=== PATIENT | female | born 1930 | race Caucasian/White ===

== ENCOUNTER 2019-03-29 17:23 | Inpatient (IN) ==
[2019-03-29 18:00] LABS: Basophils # 0.2 K/mm3 (0-0.2); Basophils % 1.4 % (0.1-2.0); Eosinophils # 0.1 K/mm3 (0.0-0.4); Eosinophils % 1.1 % (0.1-12.0); Hematocrit 50.9 % (37.0-47.0); Hemoglobin 14.7 g/dL (12.2-16.2); Lymphocytes # 3.1 K/mm3 (0.7-4.5); Lymphocytes % 27.4 % (10-50); Mean Corpuscular HGB Conc 28.9 g/dL (31.8-35.4); Mean Corpuscular Volume 93.9 fl (81-99); Mean Platelet Volume 8.8 fl (7.4-10.4); Monocytes # 0.7 K/mm3 (0.1-1.0); Monocytes % 6.5 % (1.7-9.3); Neutrophils # 7.1 K/mm3 (1.8-7.8); Neutrophils % 63.5 % (37.0-80.0); Platelet Count 417 K/mm3 (142-424); Red Blood Count 5.42 M/mm3 (4.20-5.40); Red Cell Distribution Width 14.8 % (11.5-17.5); White Blood Count 11.1 K/mm3 (4.8-10.8)
[2019-03-29 18:05] LABS: Appearance,Urine CLEAR (Clear); Blood, Urine 1+ (Negative); Color,Urine YELLOW (Yellow); Glucose,Urine (UA) Negative (Negative); Ketones,Urine Negative (Negative); Leukocyte Esterase,Urine 2+ (Negative); Microscopic, Urine URINE MICROSCOPIC (MICROSCOPIC); Protein,Urine Negative (Negative); Specific Gravity, Urine 1.025 (1.005-1.030); Urobilinogen,Urine 0.2 EU/dl (0.2)
[2019-03-29 18:18] LABS: Bilirubin,Urine Negative (Negative)
[2019-03-29 18:22] LABS: Anion Gap 17.9 mEq/L (5-15)
[2019-03-29 18:49] LABS: WBC,Urine TNTC #/hpf (0-3)
--- NOTE | 2019-03-29 20:03 | Emergency Department Note ---
ED Disposition Clinical Impression: UTI (urinary tract infection), Hypernatremia Disposition: Admitted as Observation Condition on Discharge: Fair Instructions: DI for Altered Mental Status Referrals: Provider,Referral, [Primary Care Provider] - Time of Disposition: 20:08 - Critical Care Critical Care Time: No Attestation: On 03/29/19, the high probability of a clinically significant, sudden or life threatening deterioration of the following system(s) required my full and direct attention, intervention and personal management. The time I documented below is in addition to time spent performing reported procedures but includes the following listed in this critical care notation. Medical Decision Making - Maximiliano Inquiry Pt receiving controlled substance: No Maximiliano was queried for this patient: No Vital Signs: 03/29/19 17:24 03/29/19 18:36 Temperature 99.9 F H Temperature Source Rectal Pulse Rate [Right Radial] 91 H 128 H Respiratory Rate 16 Blood Pressure [Right Radial Artery] 128/71 172/140 H Blood Pressure Mean [Right Radial Artery] 90 150 02 Sat by Pulse Oximetry 95 94 L - Lab Data Lab results reviewed: Yes: I reviewed the patient's lab results. Lab Results 03/29/19 17:15: WBC 11.1 H, RBC 5.42 H, Hgb 14.7, Hct 50.9 H, MCV 93.9, MCH 27.1, MCHC 28.9 L, RDW 14.8, Plt Count 417, MPV 8.8, Neut % (Auto) 63.5, Lymph % (Auto) 27.4, [place] % (Auto) 6.5, Eos % (Auto) 1.1, Baso % (Auto) 1.4, Neut # (Auto) 7.1, Lymph # (Auto) 3.1, [place] # (Auto) 0.7, Eos # (Auto) 0.1, Baso # (Auto) 0.2 03/29/19 17:15: Sodium 164 H*, Potassium 4.9, Chloride 126 H, Carbon Dioxide 25, Anion Gap 17.9 H, BUN 80 H, Creatinine 3.34 H, Estimated Creat Clear 12, Estimated GFR 13 L*, Est GFR ( Amer) 16 L*, Glucose 92, Calcium 10.0, Troponin I 0.07 H 03/29/19 17:15: Lactate 1.3 03/29/19 17:35: Urine Color Yellow, Urine Appearance Clear, Urine pH 6.0, Ur Specific [place] 1.025, Urine Protein Negative, Urine Glucose (UA) Negative, Urine Ketones Negative, Urine Blood 1+, Urine Nitrate Negative, Urine Bilirubin Negative, Urine Urobilinogen 0.2, Ur Leukocyte Esterase 2+ A, Urine WBC Tntc Result diagrams: 03/29/19 17:15 03/29/19 17:15 Orders (Tests/Meds): ED MEDICATIONS Generic Name Dose Route Start Last Admin Trade Name Freq PRN Reason Stop Dose Admin Sodium Chloride 500 mls @ 999 mls/hr 03/29/19 17:45 03/29/19 17:49 Sod Chlor 0.9% 1000ml Bag IV 03/29/19 18:15 Not Given .Q31M LUANNE Sodium Chloride 500 mls @ 999 mls/hr 03/29/19 18:00 03/29/19 17:51 Sod Chlor 0.9% 1000ml Bag IV 03/29/19 18:30 999 mls/hr .Q31M LUANNE Administration Sodium Chloride 1,000 mls @ 125 mls/hr 03/29/19 18:30 03/29/19 18:30 Sod Chlor 0.45% 1000ml Bag IV 04/28/19 18:29 125 mls/hr .Q8H LUANNE Administration Ceftriaxone Sodium 2 gm/ 100 mls @ 200 mls/hr 03/29/19 19:15 03/29/19 19:20 Sodium Chloride IV 04/12/19 19:14 200 mls/hr Q24H LUANNE Administration Protocol Sodium Chloride 10 ml 03/29/19 17:50 03/29/19 17:51 Saline Flush 10ml Syringe IV 04/28/19 17:49 10 ml QSHIFT PRN Administration Maintain IV Site ORDERS Category Date Time Status Chest XR -- portable [XR chest portable] Stat Exams 03/29/19 17:35 Taken Blood Culture Stat Micro 03/29/19 17:15 Received Urine Culture Stat Micro 03/29/19 17:35 Received General Adult HPI - General Chief complaint: Altered Mental Status Stated complaint: AMS Time Seen by Provider: 03/29/19 17:45 Mode of Arrival: EMS Limitations: No Limitations Description of Symptoms (Recalled from ER Triage Doc. by RN): PT TO ED PER EMS. REPORTS INCREASED LETHARY PER SNF STAFF. SNF STAFF REPORTS PT IS ALTERED FROM HER TYPICAL BASELINE. PT REFUSES ANY PAIN AT THIS TIME - History of Present Illness HPI narrative: decreased mental status, decreased po intake - Related Data Home Medications Medication Instructions Recorded Confirmed Acetaminophen [Tylenol 500mg 500 mg PO Q4HP PRN 03/29/19 03/29/19 tablet] Apixaban [Eliquis 5mg Tablet] 5 mg PO BID 03/29/19 03/29/19 Aspirin [Aspirin 81mg chewable 81 mg PO DAILY 03/29/19 03/29/19 tab] Carvedilol [Carvedilol 12.5mg Tab] 12.5 mg PO BID 03/29/19 03/29/19 Cholecalciferol (Vitamin D3) 1,000 unit PO DAILY 03/29/19 03/29/19 [Vitamin D3 1,000 Unit Cap] Donepezil HCl [Donepezil ODT 10mg] 10 mg PO DAILY 03/29/19 03/29/19 Donepezil HCl [Donepezil ODT 5mg] 5 mg PO DAILY 03/29/19 03/29/19 Fluticasone Propionate [Flonase 1 spr NS DAILY 03/29/19 03/29/19 50mcg nasal spray 16gm] Hydroxychloroquine Sulfate 200 mg PO DAILY 03/29/19 03/29/19 [Plaquenil] Lactulose [Lactulose 10gm/15ml 10 gm PO DAILY PRN 03/29/19 03/29/19 Oral Soln] Loratadine [Allergy Relief] 10 mg PO DAILY 03/29/19 03/29/19 Memantine HCl [Namenda Xr] 28 mg PO DAILY 03/29/19 03/29/19 Multivitamin with Minerals 1 each PO DAILY 03/29/19 03/29/19 [Multivitamins with Minerals] Omeprazole [Omeprazole 20mg 20 mg PO DAILY 03/29/19 03/29/19 Capsule] Potassium Chloride [Micro-K 10mEq 10 meq PO BID 03/29/19 03/29/19 cap] Triamterene/Hydrochlorothiazid 1 each PO DAILY 03/29/19 03/29/19 [Dyazide 37.5-25 Capsule] Allergies Allergy/AdvReac Type Severity Reaction Status Date / Time From LESCOL Allergy Unknown Uncoded 06/21/17 14:01 From LIPITOR Allergy Unknown Uncoded 06/21/17 14:01 From MICARDIS Allergy Unknown Uncoded 06/21/17 14:01 From NIASPAN Allergy Unknown Uncoded 06/21/17 14:01 From ZETIA Allergy Unknown Uncoded 06/21/17 14:01 LISINOPRIL Allergy Unknown Uncoded 06/21/17 14:01 SULFA (SULFONAMIDE) Allergy Unknown Uncoded 06/21/17 14:01 [facility] History - Hepatitis A Screen Drug use history?: No High risk sexual behaviors?: No History of sexually transmitted infection?: No Currently employed?: No Childcare worker?: No Do you have indoor plumbing?: Yes Do you have electricity?: Yes Attestation statement:: This patient has been screened for Hepatitis A risk factors. I have reviewed the patient's past medical history: Yes - Social History Smoking Status: Never smoker Alcohol Intake: never Occupational Status: retired ROS Obtained: Yes All systems reviewed & no additional complaints, Yes unobtainable due to mental condition - Constitutional Constitutional: Denies fever(s) - Neurologic Neurologic: Denies seizure-like activity, Denies syncope - Hematologic/Lymphatic Henatologic/Lymphatic: Denies easy bleeding, Denies easy bruising Physical Exam - General General appearance: lethargic - Eye Eye exam: Present: normal appearance, PERRL, EOMI - Respiratory Respiratory exam: Present: normal lung sounds bilaterally. Absent: respiratory distress - Cardiovascular Cardiovascular exam: Present: regular rate, normal rhythm. Absent: JVD - Abdominal Exam Abdominal exam: Present: soft - Extremities Exam Extremities exam: Present: normal inspection, normal capillary refill. Absent: full ROM, calf tenderness - Neurological Exam Neurological exam: Present: alert, oriented X3 - Psychiatric Psychiatric exam: Present: normal affect, normal mood - Skin Skin exam: Present: warm, dry, intact, normal color
--- NOTE | 2019-03-30 07:08 | Pharmacy Consult Notes ---
[facility] Pharmacy VTE Monitoring - Patient Demographics Admission date: 03/29/19 Report Date: 03/30/19 Time: 07:08 Allergies/Adverse Reactions: Patient Allergies From LESCOL Allergy (Unknown, Uncoded 06/21/17 14:01) From LIPITOR Allergy (Unknown, Uncoded 06/21/17 14:01) From MICARDIS Allergy (Unknown, Uncoded 06/21/17 14:01) From NIASPAN Allergy (Unknown, Uncoded 06/21/17 14:01) From ZETIA Allergy (Unknown, Uncoded 06/21/17 14:01) LISINOPRIL Allergy (Unknown, Uncoded 06/21/17 14:01) SULFA (SULFONAMIDE) Allergy (Unknown, Uncoded 06/21/17 14:01) Height: 1.55 m Weight: 58.995 kg Patient Problems: Current Active Problems UTI (urinary tract infection) (Acute) Hypernatremia (Acute) - VTE Risk Labs: VTE Related Lab Results Hgb 14.7 g/dL (12.2-16.2) 03/29/19 17:15 Hct 50.9 % (37.0-47.0) H 03/29/19 17:15 Plt Count 417 K/mm3 (142-424) 03/29/19 17:15 BUN 80 mg/dL (7-18) H 03/29/19 17:15 Creatinine 3.34 mg/dL (0.55-1.02) H 03/29/19 17:15 Estimated Creat Clear 12 mL/min (50-200) 03/29/19 17:15 Was VTE Risk Assessment Performed: Yes VTE Score: 4 VTE Risk Level: Low Risk - Prophylaxis VTE Prophylaxis Ordered?: Yes Types of VTE Prophylaxis: Pharmacological Pharmacologic Type: Other (ELIQUIS) - VTE Diagnosis Confirmed Treatment or plan recommended: Continue Current Treatment
[2019-03-30 07:35] LABS: Basophils # 0.1 K/mm3 (0-0.2); Eosinophils # 0.2 K/mm3 (0.0-0.4)
[2019-03-30 07:38] LABS: Anion Gap 15.9 mEq/L (5-15)
--- NOTE | 2019-03-30 07:55 | History & Physical Report ---
*Admission Date: 03/29/19 <03/30/19 07:56> *Chief complaint: UTI and Mental Status Change <03/30/19 08:38> *History of present illness: Ms. Giordano is an 88[facility] patient with history of Alzheimer's, HLP, frequent UTI's with associated renal insufficiency, and recent RLE DVT on Eliquis. She was sent to [facility] ED yesterday after staff noticed some increasing lethargy. She was found to have UTI as well as elevated WBC and decreased renal function. Her sodium and chloride levels were elevated and she had a mildly elevated troponin. CXR was negative for acute changes. She was admitted for IVF and antibiotics. This morning, patient's daughter is at the bedside and provides history as pt is alert but nonverbal. She has eaten a few bites of her breakfast and drank several glasses of fluids. Her daughter reports that although she has been restl ess throughout the night there are no indications that she is in pain and seems to be slightly more alert than yesterday. Urine cultures are pending. <03/30/19 08:38> [facility] History Medical History: Reports:: Deep Vein Thrombosis (Right leg DVT 45 days ago), Dementia, Gastroesophageal Reflux Disease(GERD), Hyperlipidemia, Renal Insufficiency, Urinary Tract Infection Denies:: Cancer, Diabetes Mellitus Type 1, Diabetes Mellitus Type 2, MRSA <03/30/19 07:56> *Have you ever received a pneumonia vaccine?: No <03/30/19 07:56> *Have you received a flu vaccine this season?: No <03/30/19 07:56> Other Medical History: Reports: Arthritis (RA), Cataracts (Bilateral repair) <03/30/19 07:56> Laterality Cases: Right: Total Hip Replacement <03/30/19 07:56> Other Surgeries: Yes: Cholecystectomy, , Hysterectomy-Total, Other (2 bladder tucks) <NigelJorge03/30/19 07:56> Amputation: No <03/30/19 07:56> Fractures: Yes (HIP) <Roxane Manning 03/30/19 07:56> - *Social History Educational Level: Completed GED/General Educational Development <Roxane Manning 03/30/19 07:56> Smoking Status: Never smoker <Roxane Manning 03/30/19 07:56> Alcohol Intake: never <Roxane Manning 03/30/19 07:56> Substance Use Type: denies use <Roxane Manning 03/30/19 08:38> *Occupational Status:: retired <Roxane Manning 03/30/19 07:56> *Travel in the last 8 weeks: None <Roxane Manning 03/30/19 07:56> Family Hx:: Cancer, Diabetes, Heart Attack <Roxane Manning 03/30/19 07:56> Review of Systems - Review of Systems Review of systems:: unable to obtain <Roxane Manning 03/30/19 08:38> - *Neurologic Denies seizure-like activity, Denies fainting <Roxane Manning 03/30/19 07:56> Meds Home Medications Medication Instructions Recorded Confirmed Type Acetaminophen [Tylenol 500mg 500 mg PO Q4HP PRN 03/29/19 03/29/19 History tablet] Apixaban [Eliquis 5mg Tablet] 5 mg PO BID 03/29/19 03/29/19 History Aspirin [Aspirin 81mg chewable 81 mg PO DAILY 03/29/19 03/29/19 History tab] Carvedilol [Carvedilol 12.5mg Tab] 12.5 mg PO BID 03/29/19 03/29/19 History Donepezil HCl [Donepezil ODT 10mg] 10 mg PO HS 03/29/19 03/30/19 History Donepezil HCl [Donepezil ODT 5mg] 5 mg PO HS 03/29/19 03/30/19 History Fluticasone Propionate [Flonase 1 spr NS HS 03/29/19 03/30/19 History 50mcg nasal spray 16gm] Hydroxychloroquine Sulfate 200 mg PO DAILY 03/29/19 03/29/19 History [Plaquenil] Lactulose [Lactulose 10gm/15ml 20 gm PO DAILYP PRN 03/29/19 03/30/19 History Oral Soln] Loratadine [Allergy Relief] 10 mg PO DAILY 03/29/19 03/29/19 History Memantine HCl [Namenda Xr] 28 mg PO DAILY 03/29/19 03/29/19 History Multivitamin with Minerals 1 each PO HS 03/29/19 03/30/19 History [Multivitamins with Minerals] Omeprazole [Omeprazole 20mg 20 mg PO DAILY 03/29/19 03/29/19 History Capsule] Potassium Chloride [Micro-K 10mEq 10 meq PO BID 03/29/19 03/29/19 History cap] Triamterene/Hydrochlorothiazid 1 each PO DAILY 03/29/19 03/29/19 History [Dyazide 37.5-25 Capsule] Calcium Carbonate 1,000 mg PO BID 03/30/19 03/30/19 History Cholecalciferol (Vitamin D3) 2,000 unit PO DAILY 03/30/19 03/30/19 History [Vitamin D3] Polyvinyl Alcohol/Povidone/Pf 1 drp OP BID 03/30/19 03/30/19 History [Refresh Classic Eye Drops] <Harrison,Mj - 03/30/19 08:58> Allergies Allergy/AdvReac Type Severity Reaction Status Date / Time atorvastatin [From Lipitor] Allergy Unknown Verified 03/30/19 07:54 allergy reaction ezetimibe [From Zetia] Allergy Unknown Verified 03/30/19 07:54 allergy reaction fluvastatin [From Lescol] Allergy Unknown Verified 03/30/19 07:54 allergy reaction lisinopril Allergy Unknown Verified 03/30/19 07:54 allergy reaction niacin Allergy Unknown Verified 03/30/19 07:54 [From Niaspan allergy Extended-Release] reaction Sulfa (Sulfonamide Allergy Unknown Verified 03/30/19 07:54 Antibiotics) allergy reaction telmisartan [From Micardis] Allergy Unknown Verified 03/30/19 07:54 allergy reaction <Harrison,Mj - 03/30/19 08:58> Exam Vital signs and Labs for Last 24 Hours: Temp Pulse Resp BP Pulse Ox 97.3 F L 69 18 119/47 L 98 03/30/19 08:00 03/30/19 08:00 03/30/19 08:00 03/30/19 08:00 03/30/19 08:00 Laboratory Results - last 24 hr 03/29/19 17:15: WBC 11.1 H, RBC 5.42 H, Hgb 14.7, Hct 50.9 H, MCV 93.9, MCH 27.1, MCHC 28.9 L, RDW 14.8, Plt Count 417, MPV 8.8, Neut % (Auto) 63.5, Lymph % (Auto) 27.4, [place] % (Auto) 6.5, Eos % (Auto) 1.1, Baso % (Auto) 1.4, Neut # (Auto) 7.1, Lymph # (Auto) 3.1, Emmet # (Auto) 0.7, Eos # (Auto) 0.1, Baso # (Auto) 0.2 03/29/19 17:15: Sodium 164 H*, Potassium 4.9, Chloride 126 H, Carbon Dioxide 25, Anion Gap 17.9 H, BUN 80 H, Creatinine 3.34 H, Estimated Creat Clear 12, Estimated GFR 13 L*, Est GFR ( Amer) 16 L*, Glucose 92, Calcium 10.0, Troponin I 0.07 H 03/29/19 17:15: Lactate 1.3 03/29/19 17:35: Urine Color Yellow, Urine Appearance Clear, Urine pH 6.0, Ur Sp ecific [place] 1.025, Urine Protein Negative, Urine Glucose (UA) Negative, Urine Ketones Negative, Urine Blood 1+, Urine Nitrate Negative, Urine Bilirubin Negative, Urine Urobilinogen 0.2, Ur Leukocyte Esterase 2+ A, Urine WBC Tntc 03/30/19 06:21: WBC 9.5, RBC 4.24, Hct 40.2, MCV 94.9, MCH 27.5, MCHC 29.0 L, RDW 15.0, Plt Count 276 D, MPV 9.0, Neut % (Auto) 65.9, Lymph % (Auto) 25.5, Emmet % (Auto) 5.4, Eos % (Auto) 2.2, Baso % (Auto) 1.0, Neut # (Auto) 6.3, Lymph # (Auto) 2.4, Emmet # (Auto) 0.5, Eos # (Auto) 0.2, Baso # (Auto) 0.1 03/30/19 06:21: Sodium 163 H*, Potassium 3.9 D, Chloride 130 H, Carbon Dioxide 21, Anion Gap 15.9 H, BUN 68 H, Creatinine 2.74 H, Estimated Creat Clear 13, Estimated GFR 16 L*, Est GFR ( Amer) 20 L D, Glucose 67 L D, Calcium 8.3 L D <Mj Coburn - 03/30/19 08:58> Temp Pulse Resp BP Pulse Ox 97.7 F 72 18 117/45 L 98 03/30/19 04:00 03/30/19 04:00 03/30/19 04:00 03/30/19 04:00 03/30/19 04:00 Laboratory Results - last 24 hr 03/29/19 17:15: WBC 11.1 H, RBC 5.42 H, Hgb 14.7, Hct 50.9 H, MCV 93.9, MCH 27.1, MCHC 28.9 L, RDW 14.8, Plt Count 417, MPV 8.8, Neut % (Auto) 63.5, Lymph % (Auto) 27.4, Emmet % (Auto) 6.5, Eos % (Auto) 1.1, Baso % (Auto) 1.4, Neut # (Auto) 7.1, Lymph # (Auto) 3.1, Emmet # (Auto) 0.7, Eos # (Auto) 0.1, Baso # (Auto) 0.2 03/29/19 17:15: Sodium 164 H*, Potassium 4.9, Chloride 126 H, Carbon Dioxide 25, Anion Gap 17.9 H, BUN 80 H, Creatinine 3.34 H, Estimated Creat Clear 12, Estimated GFR 13 L*, Est GFR ( Amer) 16 L*, Glucose 92, Calcium 10.0, Troponin I 0.07 H 03/29/19 17:15: Lactate 1.3 03/29/19 17:35: Urine Color Yellow, Urine Appearance Clear, Urine pH 6.0, Ur Specific [place] 1.025, Urine Protein Negative, Urine Glucose (UA) Negative, Urine Ketones Negative, Urine Blood 1+, Urine Nitrate Negative, Urine Bilirubin Negative, Urine Urobilinogen 0.2, Ur Leukocyte Esterase 2+ A, Urine WBC Tntc <Roxane Manning 03/30/19 07:56> I & O for Last 24 hours: Intake & Output 03/27/19 03/28/19 03/29/19 03/30/19 23:59 23:59 23:59 23:59 Intake Total 2049 1291 / 1291 Output Total 475 / 475 Balance 2049 816 / 816 Weight 129 lb 130 lb 1 oz <Mj Coburn 03/30/19 08:58> Intake & Output 03/27/19 03/28/19 03/29/19 03/30/19 11:59 11:59 11:59 11:59 Intake Total 2861 / 2861 Output Total 475 / 475 Balance 2386 / 2386 Weight 130 lb 1 oz <Roxane Manning 03/30/19 07:56> Microbiology Reports for the Last 24 Hours: Microbiology 03/29/19 17:35 Urine,Random Urine Culture - Preliminary <Mj Coburn 03/30/19 08:58> Microbiology 03/29/19 17:35 Urine,Random Urine Culture - Preliminary <Roxane Manning 03/30/19 07:56> - Constitutional no acute distress <Roxane Manning 03/30/19 08:38> Comments: fidgeting <Roxane Manning 03/30/19 08:38> - *Routine HEENT Exam Head: Present: normocephalic, atraumatic <Roxane Manning 03/30/19 08:38> ENT: Present: mucous membranes moist <Roxane Manning 03/30/19 08:38> - *Routine Neck Exam Present: supple. Absent: lymphadenopathy <Roxane Manning 03/30/19 08:38> - *Routine Respiratory Exam Comments: CTAB A&P, occasional NPC <Roxane Manning 03/30/19 08:38> - *Routine Cardiovascular Exam Present: RRR <Jorge Manning03/30/19 08:38> - *Routine Abdominal Exam Present: soft, normoactive bowel sounds. Absent: tenderness, distended, guarding, firm, rigid, organomegaly, mass <Roxane Manning 03/30/19 08:38> - *Routine Extremities Exam Present: pulses intact. Absent: edema, calf tenderness <NigelRoxane 03/30/19 08:38> Comments: bilateral DEANNA hose in place <Nigel,Roxane 03/30/19 08:38> - *Routine Neurological Exam Present: alert <NigelRoxane barlow 03/30/19 08:38> nonverbal, fidgety <NigelRoxane barlow 03/30/19 08:38> Assessment and Plan (1) Renal insufficiency Current visit: Yes Status: Acute Category: Medical Code(s): N28.9 - Disorder of kidney and ureter, unspecified (2) Dehydration Current visit: Yes Status: Acute Category: Medical Code(s): E86.0 - Dehydration (3) Dementia Current visit: Yes Status: Acute Category: Medical Code(s): F03.90 - Unspecified dementia without behavioral disturbance (4) History of DVT (deep vein thrombosis) Current visit: Yes Status: Acute Category: Medical Code(s): Z86.718 - Personal history of other venous thrombosis and embolism (5) Hypernatremia Current visit: Yes Status: Acute Category: Medical Code(s): E87.0 - Hyperosmolality and hypernatremia (6) UTI (urinary tract infection) Current visit: Yes Status: Acute Category: Medical Code(s): N39.0 - Urinary tract infection, site not specified <Mj Coburn 03/30/19 08:58> - Assessment and plan all Dx Assessment and Plan for all problems:: Saw patient, agree with above note. Plan to change to 1/4 NS today, await urine culture. <Mj Coburn 03/30/19 08:58> Urine cultures pending. Will continue current care abx and gentle hydration. Further per Dr. Coburn. <Roxane Manning 03/30/19 08:40>
[2019-03-30 08:09] LABS: Calcium 8.3 mg/dL (8.5-10.1)
[2019-03-30 08:11] LABS: Eosinophils % 2.2 % (0.1-12.0); Hematocrit 40.2 % (37.0-47.0); Lymphocytes # 2.4 K/mm3 (0.7-4.5); Lymphocytes % 25.5 % (10-50); Mean Corpuscular Volume 94.9 fl (81-99); Monocytes # 0.5 K/mm3 (0.1-1.0); Monocytes % 5.4 % (1.7-9.3); Neutrophils # 6.3 K/mm3 (1.8-7.8); Neutrophils % 65.9 % (37.0-80.0); Platelet Count 276 K/mm3 (142-424); Red Blood Count 4.24 M/mm3 (4.20-5.40); White Blood Count 9.5 K/mm3 (4.8-10.8)
--- NOTE | 2019-03-30 09:44 | Electrocardiograph Report ---
APPROVED REPORT Exam: Resting ECG HR:75 bpm ECG Measurements Heart Rate 75 AXES [place] 124 P 41 QRSd 68 QRS -2 QT 428 T109 QTc 477 <Conclusion> Normal sinus rhythm Nonspecific T wave abnormality Prolonged QT Abnormal ECG Electronically signed by : Shyam Starks, 03/30/2019 09:44:08
[2019-03-30 10:08] LABS: Hemoglobin 11.7 g/dL (12.2-16.2)
[2019-03-31 07:28] LABS: Calcium 7.5 mg/dL (8.5-10.1)
[2019-03-31 07:34] LABS: Basophils # 0.1 K/mm3 (0-0.2); Basophils % 1.1 % (0.1-2.0); Eosinophils # 0.3 K/mm3 (0.0-0.4); Eosinophils % 4.4 % (0.1-12.0); Hematocrit 36.5 % (37.0-47.0); Hemoglobin 10.5 g/dL (12.2-16.2); Lymphocytes # 1.9 K/mm3 (0.7-4.5); Lymphocytes % 25.4 % (10-50); Mean Corpuscular HGB Conc 28.8 g/dL (31.8-35.4); Mean Corpuscular Volume 94.4 fl (81-99); Mean Platelet Volume 8.7 fl (7.4-10.4); Monocytes # 0.4 K/mm3 (0.1-1.0); Monocytes % 5.3 % (1.7-9.3); Neutrophils # 4.8 K/mm3 (1.8-7.8); Neutrophils % 63.8 % (37.0-80.0); Platelet Count 249 K/mm3 (142-424); Red Blood Count 3.87 M/mm3 (4.20-5.40); White Blood Count 7.4 K/mm3 (4.8-10.8)
--- NOTE | 2019-03-31 09:21 | Progress Note ---
Internal Medicine - PN: Subj *Date: 03/31/19 *Time: 09:17 Interval history: Events from overnight reviewed and discussed with Dr. Shah, primary RN and family. Patient had some hypothermia and hypotension which improved with IVF boluses. Patient is alert today and has no complaints. Daughter thinks she may have some difficulty swallowing. Exam Vital signs and Labs for Last 24 Hours: Temp Pulse Resp BP Pulse Ox 97.8 F 64 18 103/46 L 97 03/31/19 07:38 03/31/19 07:38 03/31/19 07:38 03/31/19 07:38 03/31/19 07:38 Laboratory Results - last 24 hr 03/30/19 06:21: Hgb 11.7 L D 03/30/19 09:25: Stl Aeromonas (PCR) Not detected, Stl C. cayetanensis PCR Not detected, Stool Rotavirus (PCR) Not detected, Stl Adenov F 40/41 PCR Not detected, Stool Astrovirus (PCR) Not detected, Stool Campylobacter PCR Not detected, Stl C.difficile Tox PCR Not detected, Stool Cryptosporidium PCR Not detected, Stl E.coli Shiga Tox PCR Not detected, Stool E coli O157 PCR Not detected, Stl Enterotoxigenic E PCR Not detected, Stool EPEC (PCR) Not detected, Stool EAEC (PCR) Not detected, Stl E. histolytica PCR Not detected, Stool Giardia Lamblia PCR Not detected, Stool Salmonella PCR Not detected, Stool Sapovirus (PCR) Not detected, Stl P. shigelloides PCR Not detected, Stl Shigella/EIEC PCR Not detected, St Y.enterocolitica PCR Not detected, Stool Vibrio (PCR) Not detected, Stl Vibrio cholerae PCR Not detected, Stl Norovirus GI/GII PCR Not detected 03/30/19 17:42: Lactate 1.0 03/31/19 06:37: WBC 7.4, RBC 3.87 L, Hgb 10.5 L, Hct 36.5 L, MCV 94.4, MCH 27.2, MCHC 28.8 L, RDW 15.0, Plt Count 249, MPV 8.7, Neut % (Auto) 63.8, Lymph % (Auto) 25.4, [place] % (Auto) 5.3, Eos % (Auto) 4.4, Baso % (Auto) 1.1, Neut # (Auto) 4.8, Lymph # (Auto) 1.9, [place] # (Auto) 0.4, Eos # (Auto) 0.3, Baso # (Auto) 0.1 03/31/19 06:37: Sodium 149 H, Potassium 3.0 L, Chloride 117 H, Carbon Dioxide 21, Anion Gap 14.0, BUN 44 H D, Creatinine 2.02 H D, Estimated Creat Clear 18, Estimated GFR 23 L, Est GFR ( Amer) 28 L D, Glucose 105, Calcium 7.5 L Vital Signs - 24 hr 03/30/19 11:19 03/30/19 17:00 03/30/19 17:15 Temperature 95.1 F L 94.7 F L Pulse Rate [Right Radial] 56 L Respiratory Rate 18 21 Blood Pressure [Left Arm] Blood Pressure [Right Radial Artery] 104/44 L 02 Sat by Pulse Oximetry 98 99 03/30/19 17:30 03/30/19 17:45 03/30/19 18:32 Temperature 95.0 F L 94.9 F L 94.7 F L Pulse Rate [Right Radial] Respiratory Rate Blood Pressure [Left Arm] Blood Pressure [Right Radial Artery] 02 Sat by Pulse Oximetry 03/30/19 18:45 03/30/19 19:00 03/30/19 20:00 Temperature 95.3 F L 95.2 F L 95.5 F L Pulse Rate [Right Radial] 65 Respiratory Rate 18 Blood Pressure [Left Arm] Blood Pressure [Right Radial Artery] 100/77 L 02 Sat by Pulse Oximetry 97 03/30/19 20:24 03/30/19 20:29 03/30/19 21:35 Temperature 96.9 F L 97.0 F L Pulse Rate [Right Radial] 67 Respiratory Rate 18 Blood Pressure [Left Arm] 82/50 L Blood Pressure [Right Radial Artery] 97/52 L 02 Sat by Pulse Oximetry 03/30/19 22:00 03/30/19 23:20 03/30/19 23:59 Temperature 97.7 F 98.9 F 99.4 F Pulse Rate [Right Radial] 70 Respiratory Rate Blood Pressure [Left Arm] 111/61 101/51 L Blood Pressure [Right Radial Artery] 94/47 L 111/61 02 Sat by Pulse Oximetry 03/31/19 04:00 03/31/19 04:25 03/31/19 05:30 Temperature 97.6 F 98.0 F Pulse Rate [Right Radial] 64 64 67 Respiratory Rate 18 Blood Pressure [Left Arm] 97/47 L 98/45 L 90/52 L Blood Pressure [Right Radial Artery] 02 Sat by Pulse Oximetry 96 03/31/19 05:58 03/31/19 07:38 Temperature 97.8 F Pulse Rate [Right Radial] 68 64 Respiratory Rate 18 Blood Pressure [Left Arm] 93/52 L 103/46 L Blood Pressure [Right Radial Artery] 02 Sat by Pulse Oximetry 97 I & O for Last 24 hours: Intake & Output 03/28/19 03/29/19 03/30/19 03/31/19 23:59 23:59 23:59 23:59 Intake Total 2049 1491 / 1491 3770 / 3770 Output Total 1075 / 1075 600 / 600 Balance 2049 416 / 416 3170 / 3170 Weight 129 lb 130 lb 0.987 oz 135 lb 1 oz Microbiology Reports for the Last 24 Hours: Microbiology 03/29/19 17:35 Urine,Random Urine Culture - Preliminary - Constitutional no acute distress - *Routine HEENT Exam Head: Present: normocephalic Eye: Present: EOMI ENT: Present: mucous membranes moist - *Routine Neck Exam Present: supple. Absent: lymphadenopathy - *Routine Respiratory Exam Comments: good air movement, diminished in both bases - *Routine Cardiovascular Exam Present: RRR - *Routine Abdominal Exam Present: soft, normoactive bowel sounds. Absent: tenderness - *Routine Extremities Exam Absent: cyanosis, clubbing, edema - *Routine Skin Exam Present: warm. Absent: rash - *Routine Neurological Exam Present: alert Assessment and Plan (1) Renal insufficiency Current visit: Yes Status: Acute Category: Medical Code(s): N28.9 - Disorder of kidney and ureter, unspecified (2) Dehydration Current visit: Yes Status: Acute Category: Medical Code(s): E86.0 - Dehydration (3) Dementia Current visit: Yes Status: Acute Category: Medical Code(s): F03.90 - Unspecified dementia without behavioral disturbance (4) History of DVT (deep vein thrombosis) Current visit: Yes Status: Acute Category: Medical Code(s): Z86.718 - Personal history of other venous thrombosis and embolism (5) Hypernatremia Current visit: Yes Status: Acute Category: Medical Code(s): E87.0 - Hyperosmolality and hypernatremia (6) UTI (urinary tract infection) Current visit: Yes Status: Acute Category: Medical Code(s): N39.0 - Urinary tract infection, site not specified (7) Hypothermia Current visit: Yes Status: Acute Category: Medical Code(s): T68.XXXA - Hypothermia, initial encounter (8) Hypotension Current visit: Yes Status: Acute Category: Medical Code(s): I95.9 - Hypotension, unspecified (9) Swallowing difficulty Current visit: Yes Status: Acute Category: Medical Code(s): R13.10 - Dysphagia, unspecified - Assessment and plan all Dx Assessment and Plan for all problems:: Patient has improved this morning. Labs are better except for lower H/H. Will replace potassium and order swallowing evaluation, hold diuretic and Coreg.
[2019-04-01 08:43] LABS: Basophils # 0.1 K/mm3 (0-0.2); Basophils % 1.1 % (0.1-2.0); Eosinophils # 0.3 K/mm3 (0.0-0.4); Eosinophils % 5.6 % (0.1-12.0); Hematocrit 38.7 % (37.0-47.0); Hemoglobin 11.4 g/dL (12.2-16.2); Lymphocytes # 2.1 K/mm3 (0.7-4.5); Lymphocytes % 35.2 % (10-50); Mean Corpuscular HGB Conc 29.4 g/dL (31.8-35.4); Mean Corpuscular Volume 93.5 fl (81-99); Mean Platelet Volume 9.6 fl (7.4-10.4); Monocytes # 0.4 K/mm3 (0.1-1.0); Monocytes % 6.2 % (1.7-9.3); Neutrophils # 3.1 K/mm3 (1.8-7.8); Neutrophils % 51.8 % (37.0-80.0); Platelet Count 203 K/mm3 (142-424); Red Blood Count 4.14 M/mm3 (4.20-5.40); Red Cell Distribution Width 15.1 % (11.5-17.5); White Blood Count 6.1 K/mm3 (4.8-10.8)
[2019-04-01 09:15] LABS: Anion Gap 17.1 mEq/L (5-15)
--- NOTE | 2019-04-01 10:02 | Progress Note ---
Internal Medicine - PN: Subj *Date: 04/01/19 *Time: 09:59 Interval history: Patient seems to feel better today, smiles, nods appropriately to answer some questions. Swallow eval still pending. Daughter says patient had a better night last night. Exam Vital signs and Labs for Last 24 Hours: Temp Pulse Resp BP Pulse Ox 97.1 F L 58 L 18 118/53 L 95 04/01/19 07:43 04/01/19 07:43 04/01/19 07:43 04/01/19 07:43 04/01/19 07:43 Laboratory Results - last 24 hr 03/29/19 17:35: Urine Color Yellow, Urine Appearance Clear, Urine pH 6.0, Ur Specific [place] 1.025, Urine Protein Negative, Urine Glucose (UA) Negative, Urine Ketones Negative, Urine Blood 1+, Urine Nitrate Negative, Urine Bilirubin Negative, Urine Urobilinogen 0.2, Ur Leukocyte Esterase 2+ A, Urine WBC Tntc 04/01/19 07:45: WBC 6.1, RBC 4.14 L, Hgb 11.4 L, Hct 38.7, MCV 93.5, MCH 27.5, MCHC 29.4 L, RDW 15.1, Plt Count 203, MPV 9.6, Neut % (Auto) 51.8, Lymph % (Auto) 35.2, [place] % (Auto) 6.2, Eos % (Auto) 5.6, Baso % (Auto) 1.1, Neut # (Auto) 3.1, Lymph # (Auto) 2.1, [place] # (Auto) 0.4, Eos # (Auto) 0.3, Baso # (Auto) 0.1 04/01/19 07:45: Sodium 154 H*, Potassium 5.1 D, Chloride 126 H, Carbon Dioxide 16 L D, Anion Gap 17.1 H, BUN 29 H D, Creatinine 1.65 H, Estimated Creat Clear 22, Estimated GFR 29 L, Est GFR ( Amer) 35 L D, Glucose 98, Calcium 8.0 L , Total Bilirubin Cancelled, AST Cancelled, ALT Cancelled, Alkaline Phosphatase Cancelled, Total Protein Cancelled, Albumin Cancelled, Globulin Cancelled, Albumin/Globulin Ratio Cancelled Vital Signs - 24 hr 03/31/19 13:14 03/31/19 13:36 03/31/19 15:45 Temperature 97.5 F L 97.6 F Pulse Rate [Right Radial] 59 L Respiratory Rate 17 Blood Pressure [Left Arm] 110/68 95/48 L 02 Sat by Pulse Oximetry 98 03/31/19 20:00 03/31/19 20:43 04/01/19 04:00 Temperature 97.6 F 96.7 F L Pulse Rate [Right Radial] 64 62 Respiratory Rate 22 20 Blood Pressure [Left Arm] 106/55 L 133/42 L 02 Sat by Pulse Oximetry 94 L 94 L 94 L 04/01/19 07:43 Temperature 97.1 F L Pulse Rate [Right Radial] 58 L Respiratory Rate 18 Blood Pressure [Left Arm] 118/53 L 02 Sat by Pulse Oximetry 95 I & O for Last 24 hours: Intake & Output 03/29/19 03/30/19 03/31/19 04/01/19 23:59 23:59 23:59 23:59 Intake Total 2049 1491 / 1491 4620 / 4620 1156 / 1156 Output Total 1075 / 1075 1050 / 1050 1400 / 1400 Balance 2049 416 / 416 3570 / 3570 -244 / -244 Weight 129 lb 130 lb 0.987 oz 135 lb 1 oz 135 lb 3 oz Microbiology Reports for the Last 24 Hours: Microbiology 03/29/19 17:35 Urine,Random Urine Culture - Preliminary Enterococcus faecium (grp d) 03/29/19 17:15 Blood Blood Culture - Preliminary NO GROWTH AFTER 48 HOURS 03/29/19 17:15 Blood Blood Culture - Preliminary NO GROWTH AFTER 48 HOURS 03/30/19 14:26 Catheter Tip - Other Catheter Tip Culture - Preliminary - Constitutional no acute distress - *Routine HEENT Exam Head: Present: normocephalic Eye: Present: EOMI ENT: Present: mucous membranes moist - *Routine Neck Exam Present: supple. Absent: lymphadenopathy - *Routine Respiratory Exam Comments: good air movement, diminished in the bases - *Routine Cardiovascular Exam Present: RRR - *Routine Abdominal Exam Present: soft, normoactive bowel sounds. Absent: tenderness - *Routine Extremities Exam Absent: cyanosis, clubbing, edema - *Routine Skin Exam Present: warm. Absent: rash - *Routine Neurological Exam Present: alert Assessment and Plan (1) UTI (urinary tract infection) Current visit: Yes Status: Acute Category: Medical Code(s): N39.0 - Urinary tract infection, site not specified (2) Enterococcus faecalis infection Problem details: Urinary tract infection Current visit: Yes Status: Acute Category: Medical Code(s): B95.2 - Enterococcus as the cause of diseases classified elsewhere (3) Renal insufficiency Current visit: Yes Status: Acute Category: Medical Code(s): N28.9 - Disorder of kidney and ureter, unspecified (4) Dehydration Current visit: Yes Status: Acute Category: Medical Code(s): E86.0 - Dehydration (5) Dementia Current visit: Yes Status: Acute Category: Medical Code(s): F03.90 - Unspecified dementia without behavioral disturbance (6) History of DVT (deep vein thrombosis) Current visit: Yes Status: Acute Category: Medical Code(s): Z86.718 - Personal history of other venous thrombosis and embolism (7) Hypernatremia Current visit: Yes Status: Acute Category: Medical Code(s): E87.0 - Hyperosmolality and hypernatremia (8) Hypothermia Current visit: Yes Status: Acute Category: Medical Code(s): T68.XXXA - Hypothermia, initial encounter (9) Hypotension Current visit: Yes Status: Acute Category: Medical Code(s): I95.9 - Hypotension, unspecified (10) Swallowing difficulty Current visit: Yes Status: Acute Category: Medical Code(s): R13.10 - Dysphagia, unspecified - Assessment and plan all Dx Assessment and Plan for all problems:: Patient is improving. Plan to change to Vancomycin today due to culture result and back to D5 1/4 NS due to higher sodium.
--- NOTE | 2019-04-01 10:31 | Pharmacy Consult Notes ---
- Pharmacy Consult Date: 04/01/19 Time: 10:30 Referring provider: DR. MOLINA Reason for Consult:: VANCOMYCIN DOSING Allergies and ADEs:: Allergies Allergy/AdvReac Type Severity Reaction Status Date / Time atorvastatin [From Lipitor] Allergy Unknown Verified 03/30/19 07:54 allergy reaction ezetimibe [From Zetia] Allergy Unknown Verified 03/30/19 07:54 allergy reaction fluvastatin [From Lescol] Allergy Unknown Verified 03/30/19 07:54 allergy reaction lisinopril Allergy Unknown Verified 03/30/19 07:54 allergy reaction niacin Allergy Unknown Verified 03/30/19 07:54 [From Niaspan allergy Extended-Release] reaction Sulfa (Sulfonamide Allergy Unknown Verified 03/30/19 07:54 Antibiotics) allergy reaction telmisartan [From Micardis] Allergy Unknown Verified 03/30/19 07:54 allergy reaction Home Medications:: Home Medications Medication Instructions Recorded Confirmed Type Acetaminophen [Tylenol 500mg 500 mg PO Q4HP PRN 03/29/19 03/29/19 History tablet] Apixaban [Eliquis 5mg Tablet] 5 mg PO BID 03/29/19 03/29/19 History Aspirin [Aspirin 81mg chewable 81 mg PO DAILY 03/29/19 03/29/19 History tab] Carvedilol [Carvedilol 12.5mg Tab] 12.5 mg PO BID 03/29/19 03/29/19 History Donepezil HCl [Donepezil ODT 10mg] 10 mg PO HS 03/29/19 03/30/19 History Donepezil HCl [Donepezil ODT 5mg] 5 mg PO HS 03/29/19 03/30/19 History Fluticasone Propionate [Flonase 1 spr NS HS 03/29/19 03/30/19 History 50mcg nasal spray 16gm] Hydroxychloroquine Sulfate 200 mg PO DAILY 03/29/19 03/29/19 History [Plaquenil] Lactulose [Lactulose 10gm/15ml 20 gm PO DAILYP PRN 03/29/19 03/30/19 History Oral Soln] Loratadine [Allergy Relief] 10 mg PO DAILY 03/29/19 03/29/19 History Memantine HCl [Namenda Xr] 28 mg PO DAILY 03/29/19 03/29/19 History Multivitamin with Minerals 1 each PO HS 03/29/19 03/30/19 History [Multivitamins with Minerals] Omeprazole [Omeprazole 20mg 20 mg PO DAILY 03/29/19 03/29/19 History Capsule] Potassium Chloride [Micro-K 10mEq 10 meq PO BID 03/29/19 03/29/19 History cap] Triamterene/Hydrochlorothiazid 1 each PO DAILY 03/29/19 03/29/19 History [Dyazide 37.5-25 Capsule] Calcium Carbonate 1,000 mg PO BID 03/30/19 03/30/19 History Cholecalciferol (Vitamin D3) 2,000 unit PO DAILY 03/30/19 03/30/19 History [Vitamin D3] Polyvinyl Alcohol/Povidone/Pf 1 drp OP BID 03/30/19 03/30/19 History [Refresh Classic Eye Drops] Height: 1.55 m Weight: 61.32 kg Laboratory Results:: Laboratory Results - last 24 hr 03/29/19 17:35: Urine Color Yellow, Urine Appearance Clear, Urine pH 6.0, Ur Specific [place] 1.025, Urine Protein Negative, Urine Glucose (UA) Negative, Urine Ketones Negative, Urine Blood 1+, Urine Nitrate Negative, Urine Bilirubin Negative, Urine Urobilinogen 0.2, Ur Leukocyte Esterase 2+ A, Urine WBC Tntc 04/01/19 07:45: WBC 6.1, RBC 4.14 L, Hgb 11.4 L, Hct 38.7, MCV 93.5, MCH 27.5, MCHC 29.4 L, RDW 15.1, Plt Count 203, MPV 9.6, Neut % (Auto) 51.8, Lymph % (Auto) 35.2, [place] % (Auto) 6.2, Eos % (Auto) 5.6, Baso % (Auto) 1.1, Neut # (Auto) 3.1, Lymph # (Auto) 2.1, [place] # (Auto) 0.4, Eos # (Auto) 0.3, Baso # (Auto) 0.1 04/01/19 07:45: Sodium 154 H*, Potassium 5.1 D, Chloride 126 H, Carbon Dioxide 16 L D, Anion Gap 17.1 H, BUN 29 H D, Creatinine 1.65 H, Estimated Creat Clear 22, Estimated GFR 29 L, Est GFR ( Amer) 35 L D, Glucose 98, Calcium 8.0 L , Total Bilirubin Cancelled, AST Cancelled, ALT Cancelled, Alkaline Phosphatase Cancelled, Total Protein Cancelled, Albumin Cancelled, Globulin Cancelled, Albumin/Globulin Ratio Cancelled Medical History: Reports:: Deep Vein Thrombosis (Right leg DVT 45 days ago), Dementia, Gastroesophageal Reflux Disease(GERD), Hyperlipidemia, Renal Insufficiency, Urinary Tract Infection Denies:: Cancer, Diabetes Mellitus Type 1, Diabetes Mellitus Type 2, MRSA Assessment and Plan (1) UTI (urinary tract infection) Current visit: Yes Status: Acute Category: Medical Code(s): N39.0 - Urinary tract infection, site not specified (2) Enterococcus faecalis infection Problem details: Urinary tract infection Current visit: Yes Status: Acute Category: Medical Code(s): B95.2 - Enterococcus as the cause of diseases classified elsewhere (3) Renal insufficiency Current visit: Yes Status: Acute Category: Medical Code(s): N28.9 - Disorder of kidney and ureter, unspecified (4) Dehydration Current visit: Yes Status: Acute Category: Medical Code(s): E86.0 - Dehydration (5) Dementia Current visit: Yes Status: Acute Category: Medical Code(s): F03.90 - Unspecified dementia without behavioral disturbance (6) History of DVT (deep vein thrombosis) Current visit: Yes Status: Acute Category: Medical Code(s): Z86.718 - Personal history of other venous thrombosis and embolism (7) Hypernatremia Current visit: Yes Status: Acute Category: Medical Code(s): E87.0 - Hyperosmolality and hypernatremia (8) Hypothermia Current visit: Yes Status: Acute Category: Medical Code(s): T68.XXXA - Hypothermia, initial encounter (9) Hypotension Current visit: Yes Status: Acute Category: Medical Code(s): I95.9 - Hypotension, unspecified (10) Swallowing difficulty Current visit: Yes Status: Acute Category: Medical Code(s): R13.10 - Dysphagia, unspecified - Assessment and plan all Dx Assessment and Plan for all problems:: RECOMMEND STARTING VANCOMYCIN 1250 MG Q48H AT THIS TIME. PHARMACY WILL FOLLOW DAILY AND ADJUST APPROPRIATE.
[2019-04-02 07:10] LABS: Anion Gap 13.8 mEq/L (5-15); Calcium 8.3 mg/dL (8.5-10.1)
[2019-04-02 07:34] LABS: Basophils # 0.1 K/mm3 (0-0.2); Basophils % 0.9 % (0.1-2.0); Eosinophils # 0.3 K/mm3 (0.0-0.4); Eosinophils % 4.7 % (0.1-12.0); Hematocrit 51.5 % (37.0-47.0); Lymphocytes # 2.1 K/mm3 (0.7-4.5); Lymphocytes % 28.8 % (10-50); Mean Corpuscular HGB Conc 29.4 g/dL (31.8-35.4); Mean Corpuscular Volume 93.5 fl (81-99); Mean Platelet Volume 9.8 fl (7.4-10.4); Monocytes # 0.4 K/mm3 (0.1-1.0); Monocytes % 5.9 % (1.7-9.3); Neutrophils # 4.2 K/mm3 (1.8-7.8); Neutrophils % 59.6 % (37.0-80.0); Platelet Count 157 K/mm3 (142-424); Red Blood Count 5.51 M/mm3 (4.20-5.40); White Blood Count 7.1 K/mm3 (4.8-10.8)
--- NOTE | 2019-04-02 09:02 | Progress Note ---
Internal Medicine - PN: Subj *Date: 04/02/19 *Time: 09:06 Interval history: No new complaints today, rested pretty well overnight. Exam Vital signs and Labs for Last 24 Hours: Temp Pulse Resp BP Pulse Ox 97.7 F 63 20 134/53 L 100 04/02/19 04:00 04/02/19 04:00 04/02/19 04:00 04/02/19 04:00 04/02/19 04:00 Laboratory Results - last 24 hr 04/01/19 07:45: Sodium 154 H*, Potassium 5.1 D, Chloride 126 H, Carbon Dioxide 16 L D, Anion Gap 17.1 H, BUN 29 H D, Creatinine 1.65 H, Estimated Creat Clear 22, Estimated GFR 29 L, Est GFR ( Amer) 35 L D, Glucose 98, Calcium 8.0 L , Total Bilirubin Cancelled, AST Cancelled, ALT Cancelled, Alkaline Phosphatase Cancelled, Total Protein Cancelled, Albumin Cancelled, Globulin Cancelled, Albumin/Globulin Ratio Cancelled 04/02/19 06:40: WBC 7.1, RBC 5.51 H D, Hgb 15.0 D, Hct 51.5 H, MCV 93.5, MCH 27.5, MCHC 29.4 L, RDW 15.0, Plt Count 157, MPV 9.8, Neut % (Auto) 59.6, Lymph % (Auto) 28.8, [place] % (Auto) 5.9, Eos % (Auto) 4.7, Baso % (Auto) 0.9, Neut # (Auto) 4.2, Lymph # (Auto) 2.1, [place] # (Auto) 0.4, Eos # (Auto) 0.3, Baso # (Auto) 0.1 04/02/19 06:40: Sodium 148 H, Potassium 4.8, Chloride 118 H, Carbon Dioxide 21 D, Anion Gap 13.8, BUN 20 H D, Creatinine 1.44 H, Estimated Creat Clear 26, Estimated GFR 34 L, Est GFR ( Amer) 41 L, Glucose 88, Calcium 8.3 L Vital Signs - 24 hr 04/01/19 11:20 04/01/19 15:16 04/01/19 20:00 Temperature 97.1 F L 97.1 F L 97.6 F Pulse Rate [Right Radial] 60 60 64 Respiratory Rate 18 18 18 Blood Pressure [Left Arm] 120/54 L 109/72 L 141/79 H 02 Sat by Pulse Oximetry 96 100 99 04/02/19 00:00 04/02/19 04:00 Temperature 97.8 F 97.7 F Pulse Rate [Right Radial] 66 63 Respiratory Rate 18 20 Blood Pressure [Left Arm] 122/77 134/53 L 02 Sat by Pulse Oximetry 99 100 I & O for Last 24 hours: Intake & Output 03/30/19 03/31/19 04/01/19 04/02/19 23:59 23:59 23:59 23:59 Intake Total 1491 / 1491 4620 / 4620 2322 / 2322 809 / 809 Output Total 1075 / 1075 1050 / 1050 2250 / 2250 1100 / 1100 Balance 416 / 416 3570 / 3570 72 / 72 -291 / -291 Weight 130 lb 0.987 oz 135 lb 1 oz 135 lb 3 oz 136 lb 3 oz Microbiology Reports for the Last 24 Hours: Microbiology 03/30/19 14:26 Catheter Tip - Other Catheter Tip Culture - Preliminary Pseudomonas aeruginosa 03/29/19 17:35 Urine,Random Urine Culture - Final Enterococcus faecium (grp d) - Constitutional no acute distress - *Routine HEENT Exam Head: Present: normocephalic Eye: Present: EOMI ENT: Present: mucous membranes moist - *Routine Neck Exam Present: supple. Absent: lymphadenopathy - *Routine Respiratory Exam Comments: good air movement, decreased in the bases, rare crackle - *Routine Cardiovascular Exam Present: RRR - *Routine Abdominal Exam Present: soft, normoactive bowel sounds. Absent: tenderness - *Routine Extremities Exam Absent: cyanosis, clubbing, edema - *Routine Skin Exam Present: warm. Absent: rash - *Routine Neurological Exam Present: alert Assessment and Plan (1) UTI (urinary tract infection) Current visit: Yes Status: Acute Category: Medical Code(s): N39.0 - Urinary tract infection, site not specified (2) Enterococcus faecalis infection Problem details: Urinary tract infection Current visit: Yes Status: Acute Category: Medical Code(s): B95.2 - Enterococcus as the cause of diseases classified elsewhere (3) Pseudomonas infection Current visit: Yes Status: Acute Category: Medical Code(s): A49.8 - Other bacterial infections of unspecified site (4) Renal insufficiency Current visit: Yes Status: Acute Category: Medical Code(s): N28.9 - Disorder of kidney and ureter, unspecified (5) Dehydration Current visit: Yes Status: Acute Category: Medical Code(s): E86.0 - Dehydration (6) Dementia Current visit: Yes Status: Acute Category: Medical Code(s): F03.90 - Unspecified dementia without behavioral disturbance (7) History of DVT (deep vein thrombosis) Current visit: Yes Status: Acute Category: Medical Code(s): Z86.718 - Personal history of other venous thrombosis and embolism (8) Hypernatremia Current visit: Yes Status: Acute Category: Medical Code(s): E87.0 - Hyperosmolality and hypernatremia (9) Hypothermia Current visit: Yes Status: Acute Category: Medical Code(s): T68.XXXA - Hypothermia, initial encounter (10) Hypotension Current visit: Yes Status: Acute Category: Medical Code(s): I95.9 - Hypotension, unspecified (11) Swallowing difficulty Current visit: Yes Status: Acute Category: Medical Code(s): R13.10 - Dysphagia, unspecified - Assessment and plan all Dx Assessment and Plan for all problems:: Patient now has a polymicrobial UTI. Plan to add Cefepime to Vancomycin today, request PICC line placement. Otherwise she continues to improve.
--- NOTE | 2019-04-03 08:37 | Progress Note ---
Internal Medicine - PN: Subj *Date: 04/03/19 *Time: 08:34 Interval history: No new problems overnight, family reports patient slept well last night. PICC line was placed yesterday. Exam Vital signs and Labs for Last 24 Hours: Temp Pulse Resp BP Pulse Ox 98.3 F 88 16 115/73 93 L 04/03/19 04:00 04/03/19 04:00 04/03/19 04:00 04/03/19 04:00 04/03/19 04:00 Vital Signs - 24 hr 04/02/19 12:00 04/02/19 16:00 04/02/19 20:00 Temperature 97.5 F L 97.6 F 97.5 F L Pulse Rate [Right Radial] 61 60 77 Respiratory Rate 17 17 18 Blood Pressure [Left Arm] 134/41 L 139/75 140/81 02 Sat by Pulse Oximetry 92 L 98 90 L 04/03/19 00:20 04/03/19 04:00 Temperature 97.8 F 98.3 F Pulse Rate [Right Radial] 66 88 Respiratory Rate 16 16 Blood Pressure [Left Arm] 115/85 115/73 02 Sat by Pulse Oximetry 92 L 93 L I & O for Last 24 hours: Intake & Output 03/31/19 04/01/19 04/02/19 04/03/19 23:59 23:59 23:59 23:59 Intake Total 4620 / 4620 2322 / 2322 1602 / 1602 522 / 522 Output Total 1050 / 1050 2250 / 2250 1900 / 1900 750 / 750 Balance 3570 / 3570 72 / 72 -298 / -298 -228 / -228 Weight 135 lb 1 oz 135 lb 3 oz 136 lb 3 oz 136 lb 3.014 oz Microbiology Reports for the Last 24 Hours: Microbiology 03/30/19 14:26 Catheter Tip - Other Catheter Tip Culture - Preliminary Pseudomonas aeruginosa - Constitutional no acute distress - *Routine HEENT Exam Head: Present: normocephalic Eye: Present: EOMI ENT: Present: mucous membranes moist - *Routine Neck Exam Present: supple. Absent: lymphadenopathy - *Routine Respiratory Exam Comments: good air movement, diminished in the bases - *Routine Cardiovascular Exam Present: RRR - *Routine Abdominal Exam Present: soft, normoactive bowel sounds. Absent: tenderness - *Routine Extremities Exam Absent: cyanosis, clubbing, edema - *Routine Skin Exam Present: warm. Absent: rash - *Routine Neurological Exam Present: alert Assessment and Plan (1) UTI (urinary tract infection) Current visit: Yes Status: Acute Category: Medical Code(s): N39.0 - U rinary tract infection, site not specified (2) Enterococcus faecalis infection Problem details: Urinary tract infection Current visit: Yes Status: Acute Category: Medical Code(s): B95.2 - Enterococcus as the cause of diseases classified elsewhere (3) Pseudomonas infection Current visit: Yes Status: Acute Category: Medical Code(s): A49.8 - Other bacterial infections of unspecified site (4) Renal insufficiency Current visit: Yes Status: Acute Category: Medical Code(s): N28.9 - Disorder of kidney and ureter, unspecified (5) Dehydration Current visit: Yes Status: Acute Category: Medical Code(s): E86.0 - Dehydration (6) Dementia Current visit: Yes Status: Acute Category: Medical Code(s): F03.90 - Unspecified dementia without behavioral disturbance (7) History of DVT (deep vein thrombosis) Current visit: Yes Status: Acute Category: Medical Code(s): Z86.718 - (8) Hypernatremia Current visit: Yes Status: Acute Category: Medical Code(s): E87.0 - Hyperosmolality and hypernatremia (9) Hypothermia Current visit: Yes Status: Acute Category: Medical Code(s): T68.XXXA - Hypothermia, initial encounter (10) Hypotension Current visit: Yes Status: Acute Category: Medical Code(s): I95.9 - Hypotension, unspecified (11) Swallowing difficulty Current visit: Yes Status: Acute Category: Medical Code(s): R13.10 - Dysphagia, unspecified - Assessment and plan all Dx Assessment and Plan for all problems:: OK for discharge to [facility] today. Plan to tentatively treat with seven more days of Vancomycin and ten days of Cefepime. She will also need PICC line care and pharmacy to manage Vancomycin dosing.
--- NOTE | 2019-04-03 10:23 | Discharge Summary ---
General - General Admission date:: 03/29/19 <Mj Coburn - 04/03/19 13:03> 03/29/19 <Vicky Patel - 04/03/19 10:23> Discharge date: 04/03/19 <Vicky Patel - 04/03/19 10:23> HPI HPI: Ms. Giordano is an 88yo half-way patient with history of Alzheimer's, HLP, frequent UTI's with associated renal insufficiency, and recent RLE DVT on Eliquis. She was sent to [facility] ED yesterday after staff noticed some increasing lethargy. She was found to have UTI as well as elevated WBC and decreased renal function. Her sodium and chloride levels were elevated and she had a mildly elevated troponin. CXR was negative for acute changes. She was admitted for IVF and antibiotics. The following morning, patient's daughter was at the bedside and provided history as pt was alert but nonverbal. She had eaten a few bites of her breakfast and drank several glasses of fluids. Her daughter reported that although she had been restless throughout the night there were no indications that she was in pain and seemed to be slightly more alert than the previous day. <Vicky Patel - 04/03/19 10:23> Hospital Course Hospital Course: On admission patient was noted to be alert but nonverbal. She was started on gentle hydration with IV antibiotics. She did have an episode after admission of hypothermia and hypotension for which she received IV fluids with good response. She was noted to have difficulty with swallowing. She had a swallowing evaluation by speech therapy with the following results: Dysphagia Evaluation Summary Ms. Giordano was in her bed resting with daughter at bedside. Daughter reports that she has been awake and alert this morning. She knew her name when given a choice of 2. Ms. Giordano was given the following consistencies: thins via straw, pudding, pureed, and mechanical soft. No signs of dysphagia noted. At this time, it is recommended that Ms. Giordano be placed on mechanical soft diet with ground meats with sauce and thin liquids. Medications should be crushed in applesauce. Therapy is not recommended at this time due to difficulty following directions Her mental alertness improved daily. She responded with smiling and nodding but remained nonverbal. IV antibiotics were changed to vancomycin and cefepime was added as well due to polymicrobial urinary tract infection. IV fluids were adjusted for her hypernatremia and potassium. She did have a diarrhea panel which was negative. She had a PICC line placed on 04/02/2019 for ongoing IV antibiotics at discharge. On 04/03/2019 she remained stable and was discharged back to [facility] for ongoing treatment with IV antibiotics. She will remain on IV vancomycin for 7 days and have 10 more days of cefepime. The half-way pharmacy is to manage vancomycin dosing. Other meds as per medication sheet. She will also need PICC line care. Follow-up will be by Dr. Starks at the half-way. <Vicky Patel - 04/03/19 10:37> Objective Vital signs: Temp Pulse Resp BP Pulse Ox 97.8 F 76 20 102/73 L 98 04/03/19 12:00 04/03/19 12:00 04/03/19 12:00 04/03/19 12:00 04/03/19 12:00 <Mj Coburn - 04/03/19 13:03> Temp Pulse Resp BP Pulse Ox 97.6 F 78 20 101/63 L 100 04/03/19 08:00 04/03/19 08:00 04/03/19 08:00 04/03/19 08:00 04/03/19 08:00 <Vicky Patel - 04/03/19 10:23> Narrative: Exam Vital signs and Labs for Last 24 Hours: Temp Pulse Resp BP Pulse Ox 98.3 F 88 16 115/73 93 L 04/03/19 04:00 04/03/19 04:00 04/03/19 04:00 04/03/19 04:00 04/03/19 04:00 Vital Signs - 24 hr 04/02/19 12:00 04/02/19 16:00 04/02/19 20:00 Temperature 97.5 F L 97.6 F 97.5 F L Pulse Rate [Right Radial] 61 60 77 Respiratory Rate 17 17 18 Blood Pressure [Left Arm] 134/41 L 139/75 140/81 02 Sat by Pulse Oximetry 92 L 98 90 L 04/03/19 00:20 04/03/19 04:00 Temperature 97.8 F 98.3 F Pulse Rate [Right Radial] 66 88 Respiratory Rate 16 16 Blood Pressure [Left Arm] 115/85 115/73 02 Sat by Pulse Oximetry 92 L 93 L I & O for Last 24 hours: Intake & Output 03/31/19 04/01/19 04/02/19 04/03/19 23:59 23:59 23:59 23:59 Intake Total 4620 / 4620 2322 / 2322 1602 / 1602 522 / 522 Output Total 1050 / 1050 2250 / 2250 1900 / 1900 750 / 750 Balance 3570 / 3570 72 / 72 -298 / -298 -228 / -228 Weight 135 lb 1 oz 135 lb 3 oz 136 lb 3 oz 136 lb 3.014 oz Microbiology Reports for the Last 24 Hours: Microbiology 03/30/19 14:26 Catheter Tip - Other Catheter Tip Culture - Preliminary Pseudomonas aeruginosa - Constitutional no acute distress - *Routine HEENT Exam Head: Present: normocephalic Eye: Present: EOMI ENT: Present: mucous membranes moist - *Routine Neck Exam Present: supple. Absent: lymphadenopathy - *Routine Respiratory Exam Comments: good air movement, diminished in the bases - *Routine Cardiovascular Exam Present: RRR - *Routine Abdominal Exam Present: soft, normoactive bowel sounds. Absent: tenderness - *Routine Extremities Exam Absent: cyanosis, clubbing, edema - *Routine Skin Exam Present: warm. Absent: rash - *Routine Neurological Exam Present: alert <Vicky Patel - 04/03/19 10:37> Results Completed studies during hospitalization [Text1]: Laboratory Tests 04/02/19 04/02/19 06:40 06:40 WBC 7.1 RBC 5.51 H D Hgb 15.0 D Hct 51.5 H Plt Count 157 Neut % (Auto) 59.6 Lymph % (Auto) 28.8 [place] % (Auto) 5.9 Sodium 148 H Potassium 4.8 Chloride 118 H Carbon Dioxide 21 D BUN 20 H D Creatinine 1.44 H Estimated GFR 34 L Calcium 8.3 L Chest x-ray 03/29/2019 IMPRESSION: No acute findings. <Vicky Patel - 04/03/19 10:37> Labs on day of discharge: Preliminary micro results at discharge 03/30/19 14:26 Catheter Tip Culture - Preliminary Catheter Tip - Other Pseudomonas aeruginosa 03/29/19 17:15 Blood Culture - Preliminary Blood NO GROWTH AFTER 48 HOURS 03/29/19 17:15 Blood Culture - Preliminary Blood NO GROWTH AFTER 48 HOURS <Mj Coburn 04/03/19 13:03> Preliminary micro results at discharge 03/30/19 14:26 Catheter Tip Culture - Preliminary Catheter Tip - Other Pseudomonas aeruginosa 03/29/19 17:15 Blood Culture - Preliminary Blood NO GROWTH AFTER 48 HOURS 03/29/19 17:15 Blood Culture - Preliminary Blood NO GROWTH AFTER 48 HOURS <Vicky Patel 04/03/19 10:37> DS: Diagnosis - Discharge Diagnosis (1) UTI (urinary tract infection) Status: Acute (2) Enterococcus faecalis infection Status: Acute Problem details: Urinary tract infection (3) Pseudomonas infection Status: Acute Problem details: Urinary tract infection (4) Renal insufficiency Status: Acute (5) Dehydration Status: Acute (6) Dementia Status: Chronic (7) History of DVT (deep vein thrombosis) Status: Chronic (8) Hypernatremia Status: Acute (9) Hypothermia Status: Acute (10) Hypotension Status: Acute (11) Swallowing difficulty Status: Acute <Mj Coburn 04/03/19 13:03> (1) UTI (urinary tract infection) Status: Acute (2) Enterococcus faecalis infection Status: Acute Problem details: Urinary tract infection (3) Pseudomonas infection Status: Acute (4) Renal insufficiency Status: Acute (5) Dehydration Status: Acute (6) Dementia Status: Chronic (7) History of DVT (deep vein thrombosis) Status: Chronic (8) Hypernatremia Status: Acute (9) Hypothermia Status: Acute (10) Hypotension Status: Acute (11) Swallowing difficulty Status: Acute <Vicky Patel 04/03/19 10:24> Discharge Plan - Patient Discharge Instructions ACTIVITY: Continue current activity <Vicky Patel 04/03/19 10:23> DIET: continue same diet <Vicky Patel 04/03/19 10:23> Additional Instructions: PICC line care, Pharmacy to manage Vancomycin dosing <Mj Coburn 04/03/19 13:03> Patient Instructions: DI for Dehydration -- Adult, DI for Urinary Tract Infection (UTI) <Mj Coburn 04/03/19 13:03> Forms: <Mj Coburn 04/03/19 13:03> - Follow up Plan Follow up with: Shyam Starks MD [Staff Physician] - (at the half-way) <Mj Coburn - 04/03/19 13:03> Unknown provider or service follow up:: follow up with primary MD, Dr. Starks, at [facility]. <Vicky Patel - 04/03/19 10:23> Disposition: Xfer SNF <Mj Coburn - 04/03/19 13:03> Home Medications: Home Medications Medication Instructions Recorded Confirmed Type Acetaminophen [Tylenol 500mg 500 mg PO Q4HP PRN 03/29/19 03/29/19 History tablet] Apixaban [Eliquis 5mg Tablet] 5 mg PO BID 03/29/19 03/29/19 History Aspirin [Aspirin 81mg chewable 81 mg PO DAILY 03/29/19 03/29/19 History tab] Carvedilol [Carvedilol 12.5mg Tab] 12.5 mg PO BID 03/29/19 03/29/19 History Donepezil HCl [Donepezil ODT 10mg] 10 mg PO HS 03/29/19 03/30/19 History Donepezil HCl [Donepezil ODT 5mg] 5 mg PO HS 03/29/19 03/30/19 History Fluticasone Propionate [Flonase 1 spr NS HS 03/29/19 03/30/19 History 50mcg nasal spray 16gm] Hydroxychloroquine Sulfate 200 mg PO DAILY 03/29/19 03/29/19 History [Plaquenil] Lactulose [Lactulose 10gm/15ml 20 gm PO DAILYP PRN 03/29/19 03/30/19 History Oral Soln] Loratadine [Allergy Relief] 10 mg PO DAILY 03/29/19 03/29/19 History Memantine HCl [Namenda Xr] 28 mg PO DAILY 03/29/19 03/29/19 History Multivitamin with Minerals 1 each PO HS 03/29/19 03/30/19 History [Multivitamins with Minerals] Omeprazole [Omeprazole 20mg 20 mg PO DAILY 03/29/19 03/29/19 History Capsule] Potassium Chloride [Micro-K 10mEq 10 meq PO BID 03/29/19 03/29/19 History cap] Triamterene/Hydrochlorothiazid 1 each PO DAILY 03/29/19 03/29/19 History [Dyazide 37.5-25 Capsule] Calcium Carbonate 1,000 mg PO BID 03/30/19 03/30/19 History Cholecalciferol (Vitamin D3) 2,000 unit PO DAILY 03/30/19 03/30/19 History [Vitamin D3] Polyvinyl Alcohol/Povidone/Pf 1 drp OP BID 03/30/19 03/30/19 History [Refresh Classic Eye Drops] Cefepime HCl [Maxipime 2gm Vial] 2 gm IV Q24H 10 Days vial 04/03/19 Rx Vancomycin HCl [Vancomycin 1000mg 1,250 mg IV Q48H 7 Days vial 04/03/19 Rx Vial] <Mj Coburn - 04/03/19 13:03> Prescriptions/Medication Reconciliation: New Cefepime HCl [Maxipime 2gm Vial] 2 gm IV Q24H 10 Days vial Vancomycin HCl [Vancomycin 1000mg Vial] 1,250 mg IV Q48H 7 Days vial Continued Apixaban [Eliquis 5mg Tablet] 5 mg PO BID Triamterene/Hydrochlorothiazid [Dyazide 37.5-25 Capsule] 1 each PO DAILY Omeprazole [Omeprazole 20mg Capsule] 20 mg PO DAILY Multivitamin with Minerals [Multivitamins with Minerals] 1 each PO HS Memantine HCl [Namenda Xr] 28 mg PO DAILY Hydroxychloroquine Sulfate [Plaquenil] 200 mg PO DAILY Fluticasone Propionate [Flonase 50mcg nasal spray 16gm] 1 spr NS HS Loratadine [Allergy Relief] 10 mg PO DAILY Donepezil HCl [Donepezil ODT 5mg] 5 mg PO HS Donepezil HCl [Donepezil ODT 10mg] 10 mg PO HS Acetaminophen [Tylenol 500mg tablet] 500 mg PO Q4HP PRN PRN Reason: PAIN AND FEVER Lactulose [Lactulose 10gm/15ml Oral Soln] 20 gm PO DAILYP PRN PRN Reason: Constipation Calcium Carbonate 1,000 mg PO BID Cholecalciferol (Vitamin D3) [Vitamin D3] 2,000 unit PO DAILY Potassium Chloride [Micro-K 10mEq cap] 10 meq PO BID Carvedilol [Carvedilol 12.5mg Tab] 12.5 mg PO BID Aspirin [Aspirin 81mg chewable tab] 81 mg PO DAILY Polyvinyl Alcohol/Povidone/Pf [Refresh Classic Eye Drops] 1 drp OP BID <Mj Coburn - 04/03/19 13:03> - Problem Reconciliation Problems Reviewed?: Yes <Mj Coburn - 04/03/19 13:03> Yes <Vicky Patel - 04/03/19 10:37>
== END 2019-04-03 15:44 | DRG 690 ==
LOC: ER 17:23 → 2ND 17:23 → OBSVTOIN 20:45 → 2ND 20:45
PROVIDERS: ADMIT Family Medicine; ATTEND Family Medicine
CPT/HCPCS: 36415; 36569; 71010; 71045; 80048; 81001; 83605; 84484; 85025; 87040; 87077; 87086; 87088; 87186; 87506; 92610; 93005; 96365; 96366; 96367; 99285; C1751; J3370